=== PATIENT | female | born 1990 ===

== ENCOUNTER 2017-11-24 05:00 | Inpatient (IN) ==
[2017-11-24] MEDS ORDERED: FAMOTIDINE 20 MG/2 ML VIAL IV ONE (05:22)
[2017-11-24] MEDS ORDERED: CITRIC ACID/SODIUM CITRATE 30 ML UDCUP PO ONE (05:22)
[2017-11-24] MEDS ORDERED: LACTATED RINGERS 500 ML IV PRN (05:30)
[2017-11-24] MEDS ORDERED: ONDANSETRON 4 MG/2 ML VIAL IV PRN (05:30)
[2017-11-24] MEDS ORDERED: LACTATED RINGERS 250 ML IV ONE (05:30)
[2017-11-24] MEDS: LACTATED RINGERS 1,000 ML IV SCH ×3 (05:55→22:30)
[2017-11-24 06:27] LABS: Basophils % 0.1 % (0.0-0.8); Eosinophils # 0.1 10*3/uL (0.0-0.87); Eosinophils % 1.1 % (0.00-10.9); Hematocrit 33.3 VOL% (35.7-47.0); Hemoglobin 10.8 GM/DL (12.0-16.0); Immature Granulocytes % 0.3 %; Immature Granulocytes Absolute 0.02 #; Lymphocytes # 1.8 10*3/uL (1.4-4.0); Lymphocytes % 25.4 % (21.3-54.2); Mean Corpuscular HGB Conc 32.4 GM/DL (32-36); Mean Corpuscular Hemoglobin 27 PG (27-34); Mean Corpuscular Volume 82.6 FL (87-102); Mean Platelet Volume 10.4 FL (9.6-12.0); Monocytes # 0.5 10*3/uL (0.11-0.8); Monocytes % 6.3 % (1.7-12.7); Neutrophils # 4.8 10*3/uL (1.4-7.4); Neutrophils % 66.8 % (38.7-73.9); Platelet Count 239 T/CUMM (130-400); Red Blood Count 4.03 MC/CUMM (3.8-5.5); Red Cell Distribution Width 14.9 % (9.3-17.3); White Blood Count 7.2 T/CUMM (4-12)
[2017-11-24] MEDS ORDERED: BUPIVACAINE SPINAL 0.75% 2 ML AMP SPINAL ONE (07:04)
[2017-11-24] MEDS ORDERED: OXYTOCIN/LR 20 UNIT/1,000 ML BAG IV ONE ×3 (07:14→12:51)
[2017-11-24] MEDS ORDERED: ceFAZolin 2,000 MG in PREMIX 1 EACH IV ONE (12:00)
[2017-11-24] MEDS ORDERED: RHO(D) IMMUNE GLOBULIN 300 MCG SYRINGE IM ONE (12:51)
[2017-11-24] MEDS ORDERED: ACETAMINOPHEN 325 MG TABLET PO PRN (12:51)
[2017-11-24] MEDS ORDERED: LACTATED RINGERS 1,000 ML IV SCH (13:00)
[2017-11-24] MEDS ORDERED: PHENYLEPHRINE 1 MG/10 ML SYRINGE IV ONE (13:03)
[2017-11-24] MEDS ORDERED: MORPHINE 10 MG/10 ML VIAL ONE (13:03)
[2017-11-24] MEDS ORDERED: fentaNYL 100 MCG/2 ML VIAL ONE (13:03)
[2017-11-24] MEDS ORDERED: ACETAMINOPHEN 1,000 MG/100 ML VIAL IV ONE (13:03)
[2017-11-24] MEDS ORDERED: LACTATED RINGERS 1,000 ML IV ONE (13:04)
[2017-11-24 13:18] LABS: Apearance,Urine CLEAR (Clear); Bilirubin,Urine Negative (Negative); Blood, Urine Negative (Negative); Glucose,Urine (UA) Negative (Negative); Ketones,Urine Negative (Negative); Nitrite,Urine Negative (Negative); Protein,Urine Negative; RBC,Urine <1 /HPF (0-4); Squamous Epithelial Cell,Urine Occasional /HPF (0-10); Urine Color Straw (Yellow); Urine Specific Gravity 1.005 (1.001-1.035); Urine Urobilinogen < 2.0 EU/DL (0.2-1.0); WBC,Urine <1 /HPF (0-6)
[2017-11-24] MEDS: ONDANSETRON 4 MG/2 ML VIAL IV PRN ×2 (15:18→17:55)
[2017-11-24] MEDS: ceFAZolin 1,000 MG in SYRINGE 1 EACH IV SCH (20:17)
[2017-11-24] MEDS: DOCUSATE SODIUM 100 MG CAPSULE PO SCH (20:17)
[2017-11-25] MEDS: ceFAZolin 1,000 MG in SYRINGE 1 EACH IV SCH ×2 (03:46→11:48)
[2017-11-25] MEDS: LACTATED RINGERS 1,000 ML IV SCH ×2 (06:30)
[2017-11-25 07:16] LABS: Basophils % 0.4 % (0.0-0.8); Eosinophils # 0.1 10*3/uL (0.0-0.87); Eosinophils % 1.2 % (0.00-10.9); Hematocrit 30.3 VOL% (35.7-47.0); Hemoglobin 9.8 GM/DL (12.0-16.0); Immature Granulocytes % 0.3 %; Immature Granulocytes Absolute 0.02 #; Lymphocytes # 1.4 10*3/uL (1.4-4.0); Lymphocytes % 19.2 % (21.3-54.2); Mean Corpuscular HGB Conc 32.3 GM/DL (32-36); Mean Corpuscular Hemoglobin 26 PG (27-34); Mean Corpuscular Volume 81.7 FL (87-102); Mean Platelet Volume 10.1 FL (9.6-12.0); Monocytes # 0.5 10*3/uL (0.11-0.8); Monocytes % 6.1 % (1.7-12.7); Neutrophils # 5.4 10*3/uL (1.4-7.4); Neutrophils % 72.8 % (38.7-73.9); Platelet Count 207 T/CUMM (130-400); Red Blood Count 3.71 MC/CUMM (3.8-5.5); Red Cell Distribution Width 14.9 % (9.3-17.3); White Blood Count 7.4 T/CUMM (4-12)
[2017-11-25] MEDS: MULTIVITAMIN (PRENATAL) TABLET PO SCH (09:43)
[2017-11-25] MEDS: DOCUSATE SODIUM 100 MG CAPSULE PO SCH ×2 (09:43→20:50)
[2017-11-25] MEDS: MAGNESIUM HYDROXIDE SUSP 30 ML UDCUP PO PRN ×2 (16:32→20:50)
[2017-11-25] MEDS: IBUPROFEN 800 MG TABLET PO PRN (20:50)
[2017-11-25] MEDS: SIMETHICONE CHEW 80 MG TABLET PO PRN (20:50)
[2017-11-26] MEDS: MAGNESIUM HYDROXIDE SUSP 30 ML UDCUP PO PRN ×2 (08:55→20:21)
[2017-11-26] MEDS: MULTIVITAMIN (PRENATAL) TABLET PO SCH (08:55)
[2017-11-26] MEDS: SIMETHICONE CHEW 80 MG TABLET PO PRN ×2 (08:55→20:21)
[2017-11-26] MEDS: DOCUSATE SODIUM 100 MG CAPSULE PO SCH ×2 (08:55→20:21)
[2017-11-26] MEDS: IBUPROFEN 800 MG TABLET PO PRN (16:13)
[2017-11-27 07:56] VITALS: BP 142/73
[2017-11-27] MEDS: DOCUSATE SODIUM 100 MG CAPSULE PO SCH (08:09)
[2017-11-27] MEDS: MULTIVITAMIN (PRENATAL) TABLET PO SCH (08:09)
[2017-11-27] MEDS ORDERED: MEASLES/MUMPS/RUBELLA VACCINE 0.5 ML VIAL SUBCUT ONE (09:00)
== END 2017-11-27 17:15 | disposition home or self-care (01) | DRG 540 ==
LOC: N.LDOUT 05:00 → N.LD 05:05 → N.OB 15:56
PROVIDERS: ADMIT Obstetrics & Gynecology; ATTEND Obstetrics & Gynecology
PROC: LDCSECT (ICD-10-PCS; 2017-11-24 08:00)

== ENCOUNTER 2021-09-02 05:08 | Inpatient (IN) ==
[2021-09-02] MEDS ORDERED: CITRIC ACID/SODIUM CITRATE 30 ML UDCUP PO ONE (05:48)
[2021-09-02] MEDS ORDERED: ceFAZolin 3,000 MG in SYRINGE 1 EACH IV ONE (05:48)
[2021-09-02] MEDS ORDERED: FAMOTIDINE 20 MG/2 ML VIAL IV ONE (05:48)
[2021-09-02] MEDS ORDERED: LACTATED RINGERS 1,000 ML IV SCH ×2 (06:00→11:00)
[2021-09-02] MEDS ORDERED: OXYTOCIN/LR 30 UNIT/1,000 ML BAG IV ONE ×2 (06:36→12:05)
[2021-09-02] MEDS ORDERED: OXYTOCIN 10 UNIT/ML VIAL IM ONE (06:36)
[2021-09-02 06:38] LABS: Basophils % 0.1 % (0.0-0.8); Eosinophils # 0.1 10*3/uL (0.0-0.87); Eosinophils % 0.9 % (0.00-10.9); Hematocrit 39.2 VOL% (35.7-47.0); Hemoglobin 12.7 GM/DL (12.0-16.0); Immature Granulocytes % 0.4 %; Immature Granulocytes Absolute 0.03 #; Lymphocytes # 1.9 10*3/uL (1.4-4.0); Lymphocytes % 28.2 % (21.3-54.2); Mean Corpuscular HGB Conc 32.4 GM/DL (32-36); Mean Corpuscular Volume 89.9 FL (87-102); Mean Platelet Volume 10.6 FL (9.6-12.0); Monocytes % 5.8 % (1.7-12.7); Neutrophils % 64.6 % (38.7-73.9); Platelet Count 203 T/CUMM (130-400); Red Blood Count 4.36 MC/CUMM (3.8-5.5); Red Cell Distribution Width 15.8 % (9.3-17.3); White Blood Count 6.7 T/CUMM (4-12)
[2021-09-02 07:52] LABS: Mucus,Urine Occasional /LPF (Occasional); RBC,Urine 1 /HPF (0-4); Squamous Epithelial Cell,Urine Occasional /HPF (0-10)
[2021-09-02 07:54] LABS: Bilirubin,Urine Negative (Negative); Blood, Urine Trace mg/dL (Negative); Glucose,Urine (UA) Negative (Negative); Ketones,Urine Negative (Negative); Nitrite,Urine Negative (Negative); Protein,Urine 3+ mg/dL (Negative); Urine Appearance Clear (Clear); Urine Color Yellow (Yellow); Urine Specific Gravity 1.028 (1.001-1.035); Urine Urobilinogen 0.2 eU/dL (<2.0)
[2021-09-02] MEDS ORDERED: BUPIVACAINE SPINAL 0.75% 2 ML AMP SPINAL ONE (08:27)
[2021-09-02] MEDS ORDERED: PHENYLEPHRINE 1 MG/10 ML SYRINGE IV ONE (08:27)
[2021-09-02] MEDS ORDERED: ONDANSETRON 4 MG/2 ML VIAL ONE (08:27)
[2021-09-02] MEDS ORDERED: TRANEXAMIC ACID 1,000 MG/10 ML VIAL ONE (08:29)
[2021-09-02] MEDS ORDERED: METHYLERGONOVINE 0.2 MG/1 ML AMP ONE (08:29)
[2021-09-02] MEDS ORDERED: miSOPROStoL 200 MCG TABLET ONE (08:29)
[2021-09-02] MEDS ORDERED: SODIUM CHLORIDE 0.9% 0 ML IV ONE (08:29)
[2021-09-02] MEDS ORDERED: MIDAZOLAM 2 MG/2 ML VIAL ONE ×2 (09:35)
[2021-09-02 09:43] LABS: Cord Arterial Blood HCO3 27.7 MMOL/L
[2021-09-02 09:46] LABS: Cord Venous Blood HCO3 21.9 MMOL/L; Cord Venous Blood PCO2 58.7 MMHG; Cord Venous Blood PO2 27.3
[2021-09-02] MEDS ORDERED: OXYTOCIN/LR 20 UNIT/1,000 ML BAG IV ONE (10:22)
[2021-09-02] MEDS ORDERED: RHO(D) IMMUNE GLOBULIN 300 MCG SYRINGE IM ONE (10:22)
[2021-09-02] MEDS ORDERED: ONDANSETRON 4 MG/2 ML VIAL IV PRN (10:22)
[2021-09-02] MEDS ORDERED: ACETAMINOPHEN 325 MG TABLET PO PRN (10:22)
[2021-09-02] MEDS ORDERED: GLUCAGON 1 MG VIAL IM PRN (10:22)
[2021-09-02] MEDS ORDERED: DEXTROSE 10% 250 ML BAG IV PRN (10:46)
[2021-09-02] MEDS ORDERED: ENOXAPARIN 40 MG/0.4 ML SYRINGE SUBCUT SCH ×2 (13:02→18:00)
[2021-09-02] MEDS ORDERED: DEXTROSE 50% 25 GM/50 ML VIAL IV PRN (13:48)
[2021-09-02] MEDS: INSULIN REGULAR 100 UNIT/ML SUBCUT SCH ×2 (16:09→22:17)
[2021-09-02] MEDS ORDERED: ACETAMINOPHEN 500 MG TABLET PO SCH (18:00)
[2021-09-02] MEDS ORDERED: KETOROLAC 30 MG/1 ML VIAL IM SCH (18:00)
[2021-09-02] MEDS: KETOROLAC 30 MG/1 ML VIAL IV SCH (18:36)
[2021-09-02 18:37] LABS: Basophils % 0.2 % (0.0-0.8); Eosinophils # 0.1 10*3/uL (0.0-0.87); Eosinophils % 0.5 % (0.00-10.9); Hematocrit 38.4 VOL% (35.7-47.0); Hemoglobin 12.3 GM/DL (12.0-16.0); Immature Granulocytes % 0.3 %; Immature Granulocytes Absolute 0.03 #; Lymphocytes # 1.6 10*3/uL (1.4-4.0); Lymphocytes % 16.5 % (21.3-54.2); Mean Corpuscular Volume 89.1 FL (87-102); Monocytes % 5.5 % (1.7-12.7); Platelet Count 176 T/CUMM (130-400); Red Blood Count 4.31 MC/CUMM (3.8-5.5); White Blood Count 9.8 T/CUMM (4-12)
[2021-09-02] MEDS: ACETAMINOPHEN 500 MG TABLET PO SCH (18:38)
[2021-09-02] MEDS ORDERED: MEPERIDINE 50 MG/1 ML VIAL IV PRN (19:36)
[2021-09-02] MEDS: FUROSEMIDE 40 MG/4 ML VIAL IV SCH (20:23)
[2021-09-02 23:02] LABS: Basophils % 0.4 % (0.0-0.8); Eosinophils # 0.1 10*3/uL (0.0-0.87); Eosinophils % 0.9 % (0.00-10.9); Hematocrit 36.4 VOL% (35.7-47.0); Hemoglobin 11.5 GM/DL (12.0-16.0); Immature Granulocytes % 0.5 %; Immature Granulocytes Absolute 0.05 #; Lymphocytes # 1.6 10*3/uL (1.4-4.0); Lymphocytes % 16.7 % (21.3-54.2); Mean Corpuscular HGB Conc 31.6 GM/DL (32-36); Mean Corpuscular Volume 90.3 FL (87-102); Mean Platelet Volume 9.9 FL (9.6-12.0); Monocytes % 5.8 % (1.7-12.7); Neutrophils % 75.7 % (38.7-73.9); Platelet Count 165 T/CUMM (130-400); Red Blood Count 4.03 MC/CUMM (3.8-5.5); Red Cell Distribution Width 16.1 % (9.3-17.3); White Blood Count 9.4 T/CUMM (4-12)
[2021-09-03] MEDS: KETOROLAC 30 MG/1 ML VIAL IV SCH ×2 (00:38→06:23)
[2021-09-03] MEDS: DOCUSATE SODIUM 100 MG CAPSULE PO SCH ×3 (00:48→21:09)
[2021-09-03] MEDS: ACETAMINOPHEN 500 MG TABLET PO SCH ×3 (00:49→17:12)
[2021-09-03] MEDS: FUROSEMIDE 40 MG/4 ML VIAL IV SCH ×2 (02:32→08:12)
[2021-09-03 05:40] LABS: Basophils % 0.3 % (0.0-0.8); Eosinophils # 0.1 10*3/uL (0.0-0.87); Eosinophils % 1.3 % (0.00-10.9); Hemoglobin 11.3 GM/DL (12.0-16.0); Immature Granulocytes % 0.3 %; Immature Granulocytes Absolute 0.02 #; Lymphocytes # 1.6 10*3/uL (1.4-4.0); Lymphocytes % 20.5 % (21.3-54.2); Mean Corpuscular HGB Conc 32.3 GM/DL (32-36); Mean Corpuscular Volume 89.1 FL (87-102); Mean Platelet Volume 10.4 FL (9.6-12.0); Monocytes % 5.6 % (1.7-12.7); Platelet Count 174 T/CUMM (130-400); Red Blood Count 3.93 MC/CUMM (3.8-5.5); Red Cell Distribution Width 16.2 % (9.3-17.3); White Blood Count 7.7 T/CUMM (4-12)
[2021-09-03] MEDS: MULTIVITAMIN (PRENATAL) TABLET PO SCH (08:13)
[2021-09-03] MEDS: INSULIN REGULAR 100 UNIT/ML SUBCUT SCH ×4 (08:15→21:19)
[2021-09-03] MEDS: IBUPROFEN 800 MG TABLET PO PRN ×2 (09:45→22:13)
[2021-09-03] MEDS: ENOXAPARIN 40 MG/0.4 ML SYRINGE SUBCUT SCH (14:35)
[2021-09-04] MEDS: ACETAMINOPHEN 500 MG TABLET PO SCH (01:13)
[2021-09-04] MEDS: MAGNESIUM HYDROXIDE SUSP 30 ML UDCUP PO PRN ×2 (08:36→21:12)
[2021-09-04] MEDS: MULTIVITAMIN (PRENATAL) TABLET PO SCH (08:36)
[2021-09-04] MEDS: SIMETHICONE CHEW 80 MG TABLET PO PRN ×2 (08:36→21:12)
[2021-09-04] MEDS: DOCUSATE SODIUM 100 MG CAPSULE PO SCH ×2 (08:36→21:12)
[2021-09-04] MEDS: INSULIN REGULAR 100 UNIT/ML SUBCUT SCH ×4 (08:37→21:32)
[2021-09-04] MEDS: ENOXAPARIN 40 MG/0.4 ML SYRINGE SUBCUT SCH (08:37)
[2021-09-04] MEDS ORDERED: FUROSEMIDE 40 MG/4 ML VIAL IV ONE (08:44)
[2021-09-04] MEDS ORDERED: INFLUENZA VIRUS VACCINE 0.5 ML SYRINGE IM ONE (09:00)
[2021-09-05] MEDS: INSULIN REGULAR 100 UNIT/ML SUBCUT SCH ×4 (07:30→21:14)
[2021-09-05] MEDS: MAGNESIUM HYDROXIDE SUSP 30 ML UDCUP PO PRN (08:56)
[2021-09-05] MEDS: MULTIVITAMIN (PRENATAL) TABLET PO SCH (08:57)
[2021-09-05] MEDS: ENOXAPARIN 40 MG/0.4 ML SYRINGE SUBCUT SCH (08:57)
[2021-09-05] MEDS: SIMETHICONE CHEW 80 MG TABLET PO PRN (08:57)
[2021-09-05] MEDS: DOCUSATE SODIUM 100 MG CAPSULE PO SCH ×3 (08:57→20:56)
[2021-09-05] MEDS: IBUPROFEN 800 MG TABLET PO PRN (19:28)
[2021-09-06] MEDS: IBUPROFEN 800 MG TABLET PO PRN ×2 (04:35→11:30)
[2021-09-06] MEDS: MULTIVITAMIN (PRENATAL) TABLET PO SCH (08:11)
[2021-09-06] MEDS: DOCUSATE SODIUM 100 MG CAPSULE PO SCH (08:11)
[2021-09-06] MEDS: ENOXAPARIN 40 MG/0.4 ML SYRINGE SUBCUT SCH (08:12)
[2021-09-06] MEDS: INSULIN REGULAR 100 UNIT/ML SUBCUT SCH (08:12)
[2021-09-06 09:18] VITALS: BP 130/69
[2021-09-06] MEDS ORDERED: MEASLES/MUMPS/RUBELLA VACCINE 0.5 ML VIAL SUBCUT ONE (13:00)
[2021-09-06] MEDS ORDERED: INFLUENZA VIRUS VACCINE 0.5 ML SYRINGE IM ONE (13:00)
== END 2021-09-06 15:00 | disposition home or self-care (01) | DRG 540 ==
LOC: N.LD 05:08 → N.OB 13:02
PROVIDERS: ADMIT Obstetrics & Gynecology; ATTEND Obstetrics & Gynecology
PROC: LDCSECT (ICD-10-PCS; 2021-09-02 07:00)